=== PATIENT | male | born 1975 | race Caucasian/White ===

== ENCOUNTER 2019-02-06 02:17 | Emergency (ER) | payer BC, OTHER ==
[~2019-02-06] VITALS: Ht 180.3 cm; Wt 95.3 kg
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
[2019-02-06] MEDS ORDERED: IOHEXOL 350 MG/ML 100 ML (OMNIPAQUE 350) VIAL IV ONE (03:00)
[2019-02-06] MEDS ORDERED: CATHETER FLUSH 10 ML SYR IV PRN (03:00)
[2019-02-06] MEDS ORDERED: NS 100 ML (IVPB) BAG IV ONE (03:00)
[2019-02-06] MEDS ORDERED: HOLD METFORMIN - RECEIVED CONTRAST 20 ML VIAL IV SCH (03:00)
[2019-02-06 03:42] VITALS: BP 102/78
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
== END 2019-02-06 03:47 | disposition home or self-care (01) ==
LOC: ER 02:20 → ER FS 03:47
DX: S00.91XA Abrasion of unspecified part of head, initial encounter (principal); S30.811A Abrasion of abdominal wall, initial encounter; S80.211A Abrasion, right knee, initial encounter; S80.212A Abrasion, left knee, initial encounter; Z88.0 Allergy status to penicillin; V28.4XXA Motorcycle driver injured in noncollision transport accident in traffic accident, initial encounter
CPT/HCPCS: 71260; 74177; 93005